=== PATIENT | male | born 1955 | race African-American/Black ===

== ENCOUNTER 2016-09-10 19:19 | Emergency (ER) | payer OTHER ==
[~2016-09-10] VITALS: Ht 182.9 cm; Wt 76.0 kg
[2016-09-11] MEDS ORDERED: METHYLPREDNISOLONE SOD SUCC 125 MG/2 ML VIAL IV STA (00:39)
[2016-09-11] MEDS ORDERED: IPRATROPIUM BROMIDE (0.02%) 0.5MG/2.5ML NEB HHN STA ×2 (00:39→04:44)
[2016-09-11] MEDS ORDERED: ALBUTEROL (0.083%) 2.5MG/3ML NEB HHN STA ×2 (00:39→04:44)
[2016-09-11] MEDS ORDERED: MAGNESIUM 2 G PREMIX 50 ML IV ONE (00:45)
[2016-09-11 01:03] LABS: BASOPHILS % 1.2 % (0.0-2.0); EOSINOPHILS % 6.4 % (0.0-5.0); HEMATOCRIT. 45.3 % (42.0-52.0); HEMOGLOBIN. 14.5 g/dL (14.0-18.0); LYMPHOCYTES % 41.4 % (20.0-50.0); MEAN CORPUSCULAR HEMOGLOBIN 28.4 pg (28.0-32.0); MEAN CORPUSCULAR HGB CONC 31.9 g/dL (31.0-37.0); MEAN CORPUSCULAR VOLUME 88.9 fL (80.0-94.0); MEAN PLATELET VOLUME 8.8 fl (7.4-10.4); MONOCYTES % 11.8 % (2.0-8.0); NEUTROPHILS % 39.2 % (40.0-76.0); PLATELET 269 x1000/uL (130-400); RED BLOOD CELL COUNT 5.09 mill/uL (4.7-6.1); RED CELL DISTRIBUTION WIDTH 14.8 % (11.6-14.6)
[2016-09-11 01:11] LABS: CHLORIDE 108 mEq/L (98-107); INDEX HEMOLYSI 1 (1-3); INDEX ICTERIC 1 (1-4); INDEX LIPEMIC 1 (1-3)
[2016-09-11 01:23] LABS: ANION GAP 11; CARBON DIOXIDE 28 mEq/L (21-32); NT PRO B-TYPE NATRIURETIC PEP 15 pg/mL (5-125); UREA NITROGEN BLOOD 15 mg/dL (7-21); eGFR > 60 mL/min (>60)
[2016-09-11 06:56] VITALS: BP 122/80
== END 2016-09-11 06:57 | disposition home or self-care (01) ==
LOC: ER 19:19
DX: J44.1 Chronic obstructive pulmonary disease with (acute) exacerbation (principal); J45.909 Unspecified asthma, uncomplicated
CPT/HCPCS: 36415; 71010; 80048; 83880; 85025; 94640; 96365; 96375; 99285; J2930; J3475; J7611; Z7610

== ENCOUNTER 2017-03-04 10:44 | Inpatient (IN) | payer OTHER ==
[~2017-03-04] VITALS: Ht 172.7 cm; Wt 75.7 kg
[~2017-03-04 10:44] MED LIST: ALBU05 IH; BUDE6.9H IH; DEXTL PO; METH4TAB17 PO
[2017-03-04] MEDS ORDERED: ALBUTEROL (0.083%) 2.5MG/3ML NEB HHN STA (10:50)
[2017-03-04] MEDS ORDERED: METHYLPREDNISOLONE SOD SUCC 125 MG/2 ML VIAL IV STA (10:50)
[2017-03-04] MEDS ORDERED: IPRATROPIUM BROMIDE (0.02%) 0.5MG/2.5ML NEB HHN STA (10:50)
[2017-03-04] MEDS ORDERED: MAGNESIUM 2 G PREMIX 50 ML IV ONE (11:00)
[2017-03-04] MEDS ORDERED: LEVOFLOXACIN 500MG PREMIX 100 ML IV ONE (11:15)
[2017-03-04 11:45] LABS: CHLORIDE 109 mEq/L (98-107)
[2017-03-04 11:48] LABS: BASOPHILS % 0.1 % (0.0-2.0); EOSINOPHILS % 7.2 % (0.0-5.0); HEMATOCRIT. 49.6 % (42.0-52.0); HEMOGLOBIN. 16.3 g/dL (14.0-18.0); LYMPHOCYTES % 46.7 % (20.0-50.0); MEAN CORPUSCULAR HEMOGLOBIN 28.7 pg (28.0-32.0); MEAN CORPUSCULAR VOLUME 87.3 fL (80.0-94.0); MEAN PLATELET VOLUME 9.2 fl (7.4-10.4); MONOCYTES % 10.1 % (2.0-8.0); NEUTROPHILS % 35.9 % (40.0-76.0); PLATELET 303 x1000/uL (130-400); RED BLOOD CELL COUNT 5.68 mill/uL (4.7-6.1)
[2017-03-04 11:50] LABS: INR 1.1; PARTIAL THROMBOPLASTIN TIME 29.9 sec (23.4-31.0)
[2017-03-04 11:52] LABS: CARBON DIOXIDE 27 mEq/L (21-32)
[2017-03-04 11:57] LABS: TROPONIN I < 0.02 ng/mL (0.00-0.04)
[2017-03-04] MEDS ORDERED: CLONIDINE 0.1MG TABLET PO PRN (12:00)
[2017-03-04] MEDS ORDERED: ONDANSETRON HCL 4MG/2ML VIAL IV PRN (12:00)
[2017-03-04] MEDS ORDERED: ACETAMINOPHEN 325MG TABLET PO PRN (12:00)
[2017-03-04] MEDS ORDERED: MAGNESIUM/ALUMINUM HYDROXIDE/SIMETHICONE 30ML UDC PO PRN (12:00)
[2017-03-04] MEDS ORDERED: DOCUSATE SODIUM 100MG CAPSULE PO PRN (12:00)
[2017-03-04 12:40] LABS: CHLORIDE 106 mEq/L (98-107)
[2017-03-04 12:45] LABS: CARBON DIOXIDE 27 mEq/L (21-32)
[2017-03-04 12:47] LABS: BG BASE EXCESS 0.6 mmol/L (-2.0-2.0); BG BILEVEL POS AIRWAY PRESSURE ST=15/5; BG DEOXYHEMOGLOBIN 0.4 % (0.0-5.0); BG FRACTION INSPIRED OXYGEN ON TREATMENT; BG HCO3 ACT 26.3 mmol/L (22.0-26.0); BG METHEMOGLOBIN 0.3 % (0.0-1.5); BG OXYGEN SATURATION 99.6 % (92.0-98.5); BG OXYHEMOGLOBIN 98.3 % (94.0-97.0); BG PCO2 45.4 mmHg (35.0-45.0); BG PO2 303.8 mmHg (75.0-100.0); BG PRESSURE SUPPORT 10; BG SAMPLE SITE RIGHT BRACHIAL; BG TOTAL HEMOGLOBIN 17.1 g/dL (12.0-18.0); BG VENT MODE MASK - BIPAP; BG VENT RATE 16 set
[2017-03-04] MEDS ORDERED: METHYLPREDNISOLONE SOD SUCC 125 MG/2 ML VIAL IV SCH (14:00)
[2017-03-04] MEDS ORDERED: IPRATROPIUM/ALBUTEROL 0.5-3(2.5)MG/3ML NEB HHN PRN (14:15)
[2017-03-04 16:31] VITALS: BP 139/88
[2017-03-04] MEDS: OMEPRAZOLE 20MG CAPSULE EXTENDED RELEASE PO SCH (17:29)
[2017-03-04] MEDS: ENOXAPARIN 40MG/0.4ML SYR SUBCUT SCH (17:29)
[2017-03-04 17:40] LABS: CREATINE KINASE MB FRACTION 2.3 ng/mL (0.5-3.6)
[2017-03-04 18:12] LABS: CLARITY URINE CLEAR (CLEAR); COLOR URINE YELLOW (YELLOW); GLUCOSE URINE NEGATIVE (NEGATIVE); KETONES URINE NEGATIVE (NEGATIVE); LEUKOCYTE ESTERASE URINE NEGATIVE (NEGATIVE); NITRITE URINE NEGATIVE (NEGATIVE); OCCULT BLOOD URINE NEGATIVE (NEGATIVE); PROTEIN URINE TRACE (NEGATIVE); SPECIFIC GRAVITY URINE 1.029 (1.005-1.030)
[2017-03-04 18:31] LABS: *AMPHETAMINES SCREEN URINE NEGATIVE (NEGATIVE); *BARBITURATES SCREEN URINE NEGATIVE (NEGATIVE); *BENZODIAZEPINES SCREEN URINE NEGATIVE (NEGATIVE); *COCAINE SCREEN URINE PRESUMTIVE POSITIVE (NEGATIVE); CANNABINOID URINE SCREEN NEGATIVE (NEGATIVE); METHADONE URINE SCREEN NEGATIVE (NEGATIVE); OPIATES URINE SCREEN PRESUMTIVE POSITIVE (NEGATIVE); PHENCYCLIDINE URINE SCREEN NEGATIVE (NEGATIVE)
[2017-03-04] MEDS ORDERED: CEFTRIAXONE 1 G PREMIX 50 ML IV SCH (20:00)
[2017-03-04 20:01] VITALS: BP 124/74
[2017-03-04] MEDS: METHYLPREDNISOLONE SOD SUCC 40 MG/ML VIAL IV SCH (20:13)
[2017-03-04] MEDS: BUDESONIDE 0.5MG/2ML NEB HHN SCH (20:15)
[2017-03-04] MEDS: IPRATROPIUM/ALBUTEROL 0.5-3(2.5)MG/3ML NEB INH PRN (20:15)
[2017-03-04 22:00] VITALS: BP 127/74
[2017-03-04] MEDS: GUAIFENESIN 200MG/10ML SUGAR FREE UDC PO PRN (22:51)
[2017-03-05] VITALS (13 sets, daily range): BP systolic 102–139; BP diastolic 52–88
[2017-03-05 01:35] LABS: CREATINE KINASE MB FRACTION 3.3 ng/mL (0.5-3.6)
[2017-03-05] MEDS: METHYLPREDNISOLONE SOD SUCC 40 MG/ML VIAL IV SCH ×3 (03:16→20:30)
[2017-03-05] MEDS: GUAIFENESIN 200MG/10ML SUGAR FREE UDC PO PRN (03:26)
[2017-03-05] MEDS: OMEPRAZOLE 20MG CAPSULE EXTENDED RELEASE PO SCH (06:34)
[2017-03-05 07:07] LABS: BASOPHILS % 0.4 % (0.0-2.0); HEMATOCRIT. 46.4 % (42.0-52.0); HEMOGLOBIN. 15.3 g/dL (14.0-18.0); LYMPHOCYTES % 15.9 % (20.0-50.0); MEAN CORPUSCULAR HEMOGLOBIN 28.5 pg (28.0-32.0); MEAN CORPUSCULAR VOLUME 86.7 fL (80.0-94.0); MEAN PLATELET VOLUME 9.3 fl (7.4-10.4); MONOCYTES % 2.7 % (2.0-8.0); PLATELET 304 x1000/uL (130-400); RED BLOOD CELL COUNT 5.34 mill/uL (4.7-6.1); RED CELL DISTRIBUTION WIDTH 13.6 % (11.6-14.6)
[2017-03-05] MEDS: AZITHROMYCIN 500 MG TABLET PO SCH (08:00)
[2017-03-05] MEDS: IPRATROPIUM/ALBUTEROL 0.5-3(2.5)MG/3ML NEB INH PRN ×2 (09:39→21:29)
[2017-03-05] MEDS: BUDESONIDE 0.5MG/2ML NEB HHN SCH ×2 (09:39→21:30)
[2017-03-05] MEDS: ENOXAPARIN 40MG/0.4ML SYR SUBCUT SCH (17:05)
[2017-03-05] MEDS: GUAIFENESIN 600MG ER TABLET PO SCH (20:30)
[2017-03-05] MEDS: CEFTRIAXONE 1 G PREMIX 50 ML IV SCH (21:39)
[2017-03-06] VITALS (12 sets, daily range): BP systolic 114–150; BP diastolic 63–86
[2017-03-06] MEDS: METHYLPREDNISOLONE SOD SUCC 40 MG/ML VIAL IV SCH ×2 (04:23→20:19)
[2017-03-06] MEDS: BUDESONIDE 0.5MG/2ML NEB HHN SCH ×2 (08:02→20:02)
[2017-03-06] MEDS: IPRATROPIUM/ALBUTEROL 0.5-3(2.5)MG/3ML NEB INH PRN (08:03)
[2017-03-06] MEDS: AZITHROMYCIN 500 MG TABLET PO SCH (08:40)
[2017-03-06] MEDS: GUAIFENESIN 600MG ER TABLET PO SCH ×2 (08:40→20:18)
[2017-03-06] MEDS: FAMOTIDINE 20MG TABLET PO SCH ×2 (08:40→16:59)
[2017-03-06] MEDS: ENOXAPARIN 40MG/0.4ML SYR SUBCUT SCH (17:00)
[2017-03-06] MEDS: CEFTRIAXONE 1 G PREMIX 50 ML IV SCH (20:18)
[2017-03-07] VITALS (8 sets, daily range): BP systolic 91–139; BP diastolic 55–90
[2017-03-07 07:01] LABS: BASOPHILS % 0.2 % (0.0-2.0); HEMATOCRIT. 47.5 % (42.0-52.0); HEMOGLOBIN. 15.6 g/dL (14.0-18.0); LYMPHOCYTES % 16.4 % (20.0-50.0); MEAN CORPUSCULAR HEMOGLOBIN 28.5 pg (28.0-32.0); MEAN CORPUSCULAR VOLUME 86.8 fL (80.0-94.0); MEAN PLATELET VOLUME 9.5 fl (7.4-10.4); MONOCYTES % 5.6 % (2.0-8.0); NEUTROPHILS % 77.8 % (40.0-76.0); PLATELET 286 x1000/uL (130-400); RED BLOOD CELL COUNT 5.47 mill/uL (4.7-6.1)
[2017-03-07 07:14] LABS: CARBON DIOXIDE 27 mEq/L (21-32); CHLORIDE 102 mEq/L (98-107)
[2017-03-07] MEDS: BUDESONIDE 0.5MG/2ML NEB HHN SCH (08:05)
[2017-03-07] MEDS: FAMOTIDINE 20MG TABLET PO SCH (08:22)
[2017-03-07] MEDS: AZITHROMYCIN 500 MG TABLET PO SCH (08:22)
[2017-03-07] MEDS: GUAIFENESIN 600MG ER TABLET PO SCH (08:22)
[2017-03-07] MEDS: METHYLPREDNISOLONE SOD SUCC 40 MG/ML VIAL IV SCH (08:24)
[2017-03-07] MEDS ORDERED: AZIT500T5 PO (11:51)
[2017-03-07] MEDS ORDERED: FAMO20TA8 PO (11:51)
[2017-03-07] MEDS ORDERED: PULM50 HHN (11:51)
[2017-03-07] MEDS ORDERED: GUAI600T44 PO (11:51)
[2017-03-07] MEDS ORDERED: DUONEB3 ML INH (11:51)
== END 2017-03-07 14:00 | disposition home or self-care (01) | DRG 140 ==
LOC: EDBEDREQSVC 11:34 → EDBEDREQTM 11:34 → EDBEDREQ 11:34 → ER 11:53 → 3WST 12:27 → ENRESERV 14:42
PROVIDERS: ADMIT Internal Medicine; ATTEND Internal Medicine
PROC: 5A09357 Assistance with Respiratory Ventilation, Less than 24 Consecutive Hours, Continuous Positive Airway Pressure (ICD-10-PCS; principal; 2017-03-04)
DX: J44.1 Chronic obstructive pulmonary disease with (acute) exacerbation (principal); J96.01 Acute respiratory failure with hypoxia; I10 Essential (primary) hypertension; F14.90 Cocaine use, unspecified, uncomplicated; F17.210 Nicotine dependence, cigarettes, uncomplicated; Z90.2 Acquired absence of lung [part of]; Z79.899 Other long term (current) drug therapy
CPT/HCPCS: 36415; 36600; 71010; 80048; 80053; 80061; 80305; 81001; 82375; 82550; 82553; 82805; 83605; 83690; 83735; 83880; 84443; 84484; 85025; 85610; 85730; 87040; 87070; 87086; 93005; 93970; 94640; 94660; 96365; 96367; 96375; 99291; J0696; J1650; J1956; J2920; J2930; J3475; J7050; J7611; J7620; J7626

== ENCOUNTER 2018-03-20 21:41 | Inpatient (IN) | payer OTHER ==
[~2018-03-20] VITALS: Ht 182.9 cm; Wt 75.7 kg
[~2018-03-20 21:41] MED LIST changes: -ALBU05 IH; +AZIT500T5 PO; -BUDE6.9H IH; -DEXTL PO; +DUONEB3 ML INH; +FAMO20TA8 PO; +GUAI600T44 PO; -METH4TAB17 PO; +PULM50 HHN
[2018-03-20] MEDS ORDERED: SODIUM CHLORIDE 0.9% 1,000 ML IV ONE (22:13)
[2018-03-20] MEDS ORDERED: ALBUTEROL (0.083%) 2.5MG/3ML NEB HHN STA (22:13)
[2018-03-20] MEDS ORDERED: METHYLPREDNISOLONE SOD SUCC 125 MG/2 ML VIAL IV STA (22:13)
[2018-03-20] MEDS ORDERED: IPRATROPIUM BROMIDE (0.02%) 0.5MG/2.5ML NEB HHN STA (22:13)
[2018-03-20 23:41] LABS: BASOPHILS % 1.3 % (0.0-2.0); HEMATOCRIT. 49.3 % (42.0-52.0); HEMOGLOBIN. 15.9 g/dL (14.0-18.0); LYMPHOCYTES % 47.8 % (20.0-50.0); MEAN CORPUSCULAR HEMOGLOBIN 29.2 pg (28.0-32.0); MEAN CORPUSCULAR VOLUME 90.8 fL (80.0-94.0); MEAN PLATELET VOLUME 8.9 fl (7.4-10.4); MONOCYTES % 10.3 % (2.0-8.0); NEUTROPHILS % 31.6 % (40.0-76.0); PLATELET 388 x1000/uL (130-400); RED BLOOD CELL COUNT 5.43 mill/uL (4.7-6.1); RED CELL DISTRIBUTION WIDTH 13.9 % (11.6-14.6)
[2018-03-20 23:46] LABS: CHLORIDE 108 mEq/L (98-107)
[2018-03-21 01:00] VITALS: BP 131/84
[2018-03-21 01:30] VITALS: BP 131/84
[2018-03-21] MEDS ORDERED: IBUP-2271 PO (01:52)
[2018-03-21 04:00] VITALS: BP 113/68
[2018-03-21] MEDS ORDERED: HYDROCODONE/ACETAMINOPHEN 10/325MG TABLET PO PRN (04:00)
[2018-03-21] MEDS ORDERED: MORPHINE SULFATE 4 MG/ML CPJ (NOT FOR IM USE) IV PRN (04:00)
[2018-03-21] MEDS ORDERED: DIPHENHYDRAMINE 50MG/ML VIAL IV PRN (04:00)
[2018-03-21] MEDS ORDERED: LORAZEPAM 2MG/ML CPJ IV PRN (04:00)
[2018-03-21] MEDS ORDERED: NA PHOS,M-B/NA PHOS,DI-BA ENEMA 118ML PR PRN (04:00)
[2018-03-21] MEDS ORDERED: IPRATROPIUM/ALBUTEROL 0.5-3(2.5)MG/3ML NEB INH PRN (04:00)
[2018-03-21] MEDS ORDERED: ONDANSETRON HCL 4MG/2ML INJ IV PRN (04:00)
[2018-03-21] MEDS ORDERED: DOCUSATE SODIUM 100MG CAPSULE PO PRN (04:00)
[2018-03-21] MEDS ORDERED: CLONIDINE 0.1MG TABLET PO PRN (04:00)
[2018-03-21] MEDS ORDERED: GUAIFENESIN 200MG/10ML SUGAR FREE UDC PO PRN (04:00)
[2018-03-21] MEDS ORDERED: ACETAMINOPHEN 325MG TABLET PO PRN (04:00)
[2018-03-21] MEDS ORDERED: MAGNESIUM/ALUMINUM HYDROXIDE/SIMETHICONE 30ML UDC PO PRN (04:00)
[2018-03-21] MEDS ORDERED: METHYLPREDNISOLONE SOD SUCC 125 MG/2 ML VIAL IV SCH (06:00)
[2018-03-21] MEDS ORDERED: LEVOFLOXACIN 500MG PREMIX 100 ML IV SCH (06:00)
[2018-03-21 07:54] LABS: CHLORIDE 106 mEq/L (98-107)
[2018-03-21 08:00] VITALS: BP 126/70
[2018-03-21] MEDS ORDERED: ASPIRIN 81MG EC TABLET PO SCH (09:00)
[2018-03-21] MEDS ORDERED: ENOXAPARIN 40MG/0.4ML SYR SUBCUT SCH (09:00)
[2018-03-21] MEDS ORDERED: BUDESONIDE 0.5MG/2ML NEB HHN SCH (11:30)
[2018-03-21 12:00] VITALS: BP 131/68
[2018-03-21] MEDS ORDERED: NICOTINE 14MG PATCH TD SCH (12:30)
[2018-03-21] MEDS: GUAIFENESIN 600MG ER TABLET PO SCH ×2 (12:36→20:11)
[2018-03-21] MEDS: IPRATROPIUM/ALBUTEROL 0.5-3(2.5)MG/3ML NEB HHN SCH ×2 (13:15→16:30)
[2018-03-21] MEDS ORDERED: METHYLPREDNISOLONE SOD SUCC 40 MG/ML VIAL IV SCH (14:00)
[2018-03-21 16:00] VITALS: BP 110/69
== END 2018-03-21 20:30 | disposition short-term general hospital (02) | DRG 816 ==
LOC: ER 22:23 → 7WST 23:56 → EDBEDREQ 23:58 → EDBEDREQTM 23:58 → ENRESERV 03-21 00:04
PROVIDERS: ADMIT Internal Medicine; ATTEND Internal Medicine
DX: T40.5X1A Poisoning by cocaine, accidental (unintentional), initial encounter (principal); J96.00 Acute respiratory failure, unspecified whether with hypoxia or hypercapnia; E46 Unspecified protein-calorie malnutrition; D72.1 Eosinophilia; J68.0 Bronchitis and pneumonitis due to chemicals, gases, fumes and vapors; F41.9 Anxiety disorder, unspecified; K59.00 Constipation, unspecified; F14.10 Cocaine abuse, uncomplicated; F17.210 Nicotine dependence, cigarettes, uncomplicated; Y92.89 Other specified places as the place of occurrence of the external cause; Z79.899 Other long term (current) drug therapy; Z90.2 Acquired absence of lung [part of]; Z68.22 Body mass index [BMI] 22.0-22.9, adult
CPT/HCPCS: 36415; 71045; 80048; 80053; 83880; 84484; 85025; 93005; 96361; 96374; 99291; J1650; J1956; J2920; J2930; J7030; J7050; J7611; J7620; J7626

== ENCOUNTER 2018-08-16 04:13 | Inpatient (IN) | payer OTHER ==
[~2018-08-16] VITALS: Ht 152.4 cm; Wt 77.1 kg
[~2018-08-16 04:13] MED LIST changes: -AZIT500T5 PO; -DUONEB3 ML INH; -FAMO20TA8 PO; +IBUP-2271 PO; -PULM50 HHN
[2018-08-16] MEDS ORDERED: IPRATROPIUM BROMIDE (0.02%) 0.5MG/2.5ML NEB HHN STA (04:29)
[2018-08-16] MEDS ORDERED: ONDANSETRON HCL 4MG/2ML INJ IV STA (04:29)
[2018-08-16] MEDS ORDERED: METHYLPREDNISOLONE SOD SUCC 125 MG/2 ML VIAL IV STA (04:29)
[2018-08-16] MEDS ORDERED: ALBUTEROL (0.083%) 2.5MG/3ML NEB HHN SCH (04:30)
[2018-08-16] MEDS ORDERED: MAGNESIUM 2 G PREMIX 50 ML IV ONE (04:30)
[2018-08-16 05:26] LABS: BASOPHILS % 0.8 % (0.0-2.0); HEMATOCRIT. 46.5 % (42.0-52.0); HEMOGLOBIN. 14.9 g/dL (14.0-18.0); LYMPHOCYTES % 31.4 % (20.0-50.0); MEAN CORPUSCULAR HEMOGLOBIN 29.2 pg (28.0-32.0); MEAN CORPUSCULAR VOLUME 90.8 fL (80.0-94.0); MEAN PLATELET VOLUME 9.2 fl (7.4-10.4); MONOCYTES % 10.7 % (2.0-8.0); NEUTROPHILS % 52.1 % (40.0-76.0); PLATELET 292 x1000/uL (130-400); RED BLOOD CELL COUNT 5.12 mill/uL (4.7-6.1); RED CELL DISTRIBUTION WIDTH 14.5 % (11.6-14.6)
[2018-08-16 05:29] LABS: CHLORIDE 110 mEq/L (98-107)
[2018-08-16 05:42] LABS: BG BASE EXCESS 2.2 mmol/L (-2.0-2.0); BG BILEVEL POS AIRWAY PRESSURE 15/5; BG DEOXYHEMOGLOBIN 1.9 % (0.0-5.0); BG FRACTION INSPIRED OXYGEN 40; BG HCO3 ACT 28.4 mmol/L (22.0-26.0); BG METHEMOGLOBIN 0.3 % (0.0-1.5); BG OXYGEN SATURATION 98.1 % (92.0-98.5); BG OXYHEMOGLOBIN 95.8 % (94.0-97.0); BG PCO2 50.2 mmHg (35.0-45.0); BG PH 7.371 (7.350-7.450); BG PO2 106.1 mmHg (75.0-100.0); BG SAMPLE SITE RIGHT RADIAL; BG TOTAL HEMOGLOBIN 15.2 g/dL (12.0-18.0); BG VENT MODE MASK - BIPAP; BG VENT RATE 16 set
[2018-08-16] MEDS ORDERED: ACETAMINOPHEN 325MG TABLET PO PRN (10:30)
[2018-08-16] MEDS ORDERED: ONDANSETRON HCL 4MG/2ML INJ IV PRN (10:30)
[2018-08-16] MEDS ORDERED: GUAIFENESIN-DM 200MG-20MG/10ML UDC PO PRN (10:30)
[2018-08-16] MEDS ORDERED: CLONIDINE 0.1MG TABLET PO PRN (10:30)
[2018-08-16] MEDS ORDERED: IPRATROPIUM/ALBUTEROL 0.5-3(2.5)MG/3ML NEB HHN PRN (10:30)
[2018-08-16] MEDS ORDERED: NICOTINE 14MG PATCH TD NR (12:00)
[2018-08-16] MEDS: METHYLPREDNISOLONE SOD SUCC 40 MG/ML VIAL IV SCH ×2 (12:06→21:07)
[2018-08-16] MEDS: IPRATROPIUM/ALBUTEROL 0.5-3(2.5)MG/3ML NEB HHN SCH ×2 (13:47→16:14)
[2018-08-16 20:00] VITALS: BP 128/78
[2018-08-16] MEDS: GUAIFENESIN 600MG ER TABLET PO SCH (21:07)
[2018-08-16 21:26] VITALS: BP 129/84
[2018-08-16 22:00] VITALS: BP 129/84
[2018-08-16 23:17] LABS: *BENZODIAZEPINES SCREEN URINE NEGATIVE (NEGATIVE); *COCAINE SCREEN URINE PRESUMTIVE POSITIVE (NEGATIVE); CANNABINOID URINE SCREEN NEGATIVE (NEGATIVE); METHADONE URINE SCREEN NEGATIVE (NEGATIVE); OPIATES URINE SCREEN NEGATIVE (NEGATIVE); PHENCYCLIDINE URINE SCREEN NEGATIVE (NEGATIVE)
[2018-08-16 23:19] LABS: *AMPHETAMINES SCREEN URINE NEGATIVE (NEGATIVE); *BARBITURATES SCREEN URINE NEGATIVE (NEGATIVE)
[2018-08-17] VITALS (12 sets, daily range): BP systolic 121–147; BP diastolic 67–91
[2018-08-17] MEDS: IPRATROPIUM/ALBUTEROL 0.5-3(2.5)MG/3ML NEB HHN SCH ×6 (00:22→20:57)
[2018-08-17] MEDS: METHYLPREDNISOLONE SOD SUCC 40 MG/ML VIAL IV SCH ×3 (04:20→21:25)
[2018-08-17 06:48] LABS: CHLORIDE 108 mEq/L (98-107)
[2018-08-17 06:51] LABS: BASOPHILS % 0.2 % (0.0-2.0); HEMATOCRIT. 42.6 % (42.0-52.0); HEMOGLOBIN. 13.7 g/dL (14.0-18.0); LYMPHOCYTES % 12.3 % (20.0-50.0); MEAN CORPUSCULAR HEMOGLOBIN 28.8 pg (28.0-32.0); MEAN CORPUSCULAR VOLUME 89.5 fL (80.0-94.0); MEAN PLATELET VOLUME 9.1 fl (7.4-10.4); MONOCYTES % 5.9 % (2.0-8.0); NEUTROPHILS % 81.6 % (40.0-76.0); PLATELET 277 x1000/uL (130-400); RED BLOOD CELL COUNT 4.76 mill/uL (4.7-6.1); RED CELL DISTRIBUTION WIDTH 13.9 % (11.6-14.6)
[2018-08-17] MEDS: GUAIFENESIN 600MG ER TABLET PO SCH ×2 (08:59→21:24)
[2018-08-17] MEDS: NICOTINE 14MG PATCH TD SCH (09:00)
[2018-08-17] MEDS: AZITHROMYCIN 500 MG TABLET PO SCH (11:28)
[2018-08-17] MEDS ORDERED: ENOXAPARIN 40MG/0.4ML SYR SUBCUT SCH (21:15)
[2018-08-18] VITALS (8 sets, daily range): BP systolic 124–143; BP diastolic 68–96
[2018-08-18] MEDS: IPRATROPIUM/ALBUTEROL 0.5-3(2.5)MG/3ML NEB HHN SCH ×4 (00:42→12:09)
[2018-08-18] MEDS: METHYLPREDNISOLONE SOD SUCC 40 MG/ML VIAL IV SCH ×2 (05:38→11:47)
[2018-08-18] MEDS: NICOTINE 14MG PATCH TD SCH (08:02)
[2018-08-18] MEDS: GUAIFENESIN 600MG ER TABLET PO SCH (08:02)
[2018-08-18] MEDS: AZITHROMYCIN 500 MG TABLET PO SCH (11:57)
== END 2018-08-18 13:50 | disposition home or self-care (01) | DRG 816 ==
LOC: ER 04:13 → EDBEDREQ 05:08 → EDBEDREQTM 05:08 → ENRESERV 17:44 → 3WST 20:22
PROVIDERS: ADMIT Internal Medicine; ATTEND Internal Medicine
PROC: 5A09357 Assistance with Respiratory Ventilation, Less than 24 Consecutive Hours, Continuous Positive Airway Pressure (ICD-10-PCS; principal; 2018-08-16)
PROC: 5A09357 Assistance with Respiratory Ventilation, Less than 24 Consecutive Hours, Continuous Positive Airway Pressure (ICD-10-PCS; 2018-08-17)
DX: T40.5X1A Poisoning by cocaine, accidental (unintentional), initial encounter (principal); J96.00 Acute respiratory failure, unspecified whether with hypoxia or hypercapnia; J44.1 Chronic obstructive pulmonary disease with (acute) exacerbation; J68.0 Bronchitis and pneumonitis due to chemicals, gases, fumes and vapors; F14.90 Cocaine use, unspecified, uncomplicated; E87.0 Hyperosmolality and hypernatremia; E87.2 Acidosis; J06.9 Acute upper respiratory infection, unspecified; E87.8 Other disorders of electrolyte and fluid balance, not elsewhere classified; F17.210 Nicotine dependence, cigarettes, uncomplicated; Y92.89 Other specified places as the place of occurrence of the external cause; Z71.51 Drug abuse counseling and surveillance of drug abuser; Z71.6 Tobacco abuse counseling
CPT/HCPCS: 36415; 36600; 71045; 80048; 80305; 82375; 82805; 83880; 84484; 93005; 94640; 94660; 96374; 99285; J1650; J2405; J2920; J2930; J3475; J7611; J7620

== ENCOUNTER 2018-10-18 17:00 | Inpatient (IN) | payer OTHER ==
[~2018-10-18] VITALS: Ht 182.9 cm; Wt 77.1 kg
[2018-10-18] MEDS ORDERED: METHYLPREDNISOLONE SOD SUCC 125 MG/2 ML VIAL IV STA (17:14)
[2018-10-18] MEDS ORDERED: LEVOFLOXACIN 750MG PREMIX 150 ML IV ONE (17:15)
[2018-10-18] MEDS ORDERED: IPRATROPIUM/ALBUTEROL 0.5-3(2.5)MG/3ML NEB HHN ONE (17:15)
[2018-10-18 17:58] LABS: BASOPHILS % 2.4 % (0.0-2.0); HEMATOCRIT. 47.8 % (42.0-52.0); HEMOGLOBIN. 15.7 g/dL (14.0-18.0); LYMPHOCYTES % 49.1 % (20.0-50.0); MEAN CORPUSCULAR HEMOGLOBIN 29.3 pg (28.0-32.0); MEAN CORPUSCULAR VOLUME 89.5 fL (80.0-94.0); MONOCYTES % 9.6 % (2.0-8.0); NEUTROPHILS % 28.9 % (40.0-76.0); PLATELET 259 x1000/uL (130-400); RED BLOOD CELL COUNT 5.34 mill/uL (4.7-6.1)
[2018-10-18 18:04] LABS: CHLORIDE 113 mEq/L (98-107)
[2018-10-18 18:05] LABS: PARTIAL THROMBOPLASTIN TIME 31.2 sec (23.4-31.0); PROTHROMBIN TIME 10.1 sec (9.6-11.0)
[2018-10-18 18:12] LABS: ETHANOL BLOOD < 10 mg/dL
[2018-10-18 18:28] LABS: BG CARBOXYHEMOGLOBIN 1.2 % (0.5-1.5); BG FRACTION INSPIRED OXYGEN 60; BG HCO3 ACT 23.3 mmol/L (22.0-26.0); BG METHEMOGLOBIN 0.4 % (0.0-1.5); BG OXYHEMOGLOBIN 97.4 % (94.0-97.0); BG PCO2 41.6 mmHg (35.0-45.0); BG PH 7.366 (7.350-7.450); BG PO2 147.3 mmHg (75.0-100.0); BG SAMPLE SITE RIGHT RADIAL; BG TOTAL HEMOGLOBIN 15.7 g/dL (12.0-18.0); BG VENT MODE MASK - AEROSOL
[2018-10-18 19:19] LABS: CLARITY URINE CLEAR (CLEAR); COLOR URINE YELLOW (YELLOW); KETONES URINE NEGATIVE (NEGATIVE); LEUKOCYTE ESTERASE URINE NEGATIVE (NEGATIVE); NITRITE URINE NEGATIVE (NEGATIVE); OCCULT BLOOD URINE NEGATIVE (NEGATIVE); PH URINE 7.5 (4.5-8.0); PROTEIN URINE NEGATIVE (NEGATIVE); SPECIFIC GRAVITY URINE 1.021 (1.005-1.030)
[2018-10-18 19:45] LABS: *AMPHETAMINES SCREEN URINE NEGATIVE (NEGATIVE); *BENZODIAZEPINES SCREEN URINE NEGATIVE (NEGATIVE); *COCAINE SCREEN URINE PRESUMTIVE POSITIVE (NEGATIVE); CANNABINOID URINE SCREEN NEGATIVE (NEGATIVE); METHADONE URINE SCREEN NEGATIVE (NEGATIVE); OPIATES URINE SCREEN PRESUMTIVE POSITIVE (NEGATIVE); PHENCYCLIDINE URINE SCREEN NEGATIVE (NEGATIVE)
[2018-10-18 19:46] LABS: *BARBITURATES SCREEN URINE NEGATIVE (NEGATIVE)
[2018-10-18 21:40] VITALS: BP 152/82
[2018-10-18 21:55] VITALS: BP 152/82
[2018-10-18] MEDS ORDERED: BUDE6.9H INH (22:51)
[2018-10-19] VITALS: BP 167/74
[2018-10-19] MEDS ORDERED: LEVOFLOXACIN 500MG PREMIX 100 ML IV SCH ×2 (00:30→18:00)
[2018-10-19] MEDS ORDERED: NON FORMULARY PATIENT HOME MED XX SCH (00:30)
[2018-10-19] MEDS ORDERED: IPRATROPIUM/ALBUTEROL 0.5-3(2.5)MG/3ML NEB HHN PRN (00:30)
[2018-10-19 04:00] VITALS: BP 144/82
[2018-10-19] MEDS: IPRATROPIUM/ALBUTEROL 0.5-3(2.5)MG/3ML NEB HHN SCH ×4 (04:00→17:00)
[2018-10-19] MEDS: METHYLPREDNISOLONE SOD SUCC 40 MG/ML VIAL IV SCH ×2 (05:50→14:14)
[2018-10-19] MEDS ORDERED: PROMETHAZINE/DEXTROMETHORPHAN 6.25-15MG/5ML BOTTLE 120ML PO PRN (06:00)
[2018-10-19 08:00] VITALS: BP 136/76
[2018-10-19] MEDS ORDERED: PNEUMOCOCCAL 23-VAL P-SAC VAC 0.5 ML IM ONE (08:00)
[2018-10-19] MEDS: BUDESONIDE 0.5MG/2ML NEB HHN SCH ×2 (08:56→17:00)
[2018-10-19] MEDS ORDERED: NICOTINE 14MG PATCH TD SCH (11:15)
[2018-10-19 11:51] VITALS: BP 152/81
[2018-10-19 15:53] VITALS: BP 164/81
[2018-10-19 16:53] VITALS: BP 164/81
== END 2018-10-19 18:35 | disposition home or self-care (01) | DRG 816 ==
LOC: ER 17:18 → 8WST 18:26 → EDBEDREQ 18:30 → EDBEDREQTM 18:30 → ENRESERV 20:53 → CANRESERV 20:53
PROVIDERS: ADMIT Internal Medicine; ATTEND Internal Medicine
DX: T40.5X1A Poisoning by cocaine, accidental (unintentional), initial encounter (principal); J96.00 Acute respiratory failure, unspecified whether with hypoxia or hypercapnia; J44.1 Chronic obstructive pulmonary disease with (acute) exacerbation; E87.8 Other disorders of electrolyte and fluid balance, not elsewhere classified; F14.10 Cocaine abuse, uncomplicated; F17.210 Nicotine dependence, cigarettes, uncomplicated; Z79.899 Other long term (current) drug therapy; Y92.9 Unspecified place or not applicable; J68.0 Bronchitis and pneumonitis due to chemicals, gases, fumes and vapors
CPT/HCPCS: 36415; 36600; 71045; 80305; 80320; 82375; 82805; 83605; 83880; 84484; 90732; 93005; 96365; 96375; 99285; J1956; J2920; J2930; J7620; J7626; G0480

== ENCOUNTER 2019-01-30 20:58 | Emergency (ER) | payer OTHER ==
[~2019-01-30] VITALS: Ht 188 cm; Wt 91.0 kg
[~2019-01-30 20:58] MED LIST changes: +ALBU2.5V13 NEB; +BUDE6.9H INH
[2019-01-30] MEDS ORDERED: METHYLPREDNISOLONE SOD SUCC 125 MG/2 ML VIAL IV STA (21:18)
[2019-01-30] MEDS ORDERED: ALBUTEROL (0.083%) 2.5MG/3ML NEB HHN STA (21:18)
[2019-01-30] MEDS ORDERED: IPRATROPIUM BROMIDE (0.02%) 0.5MG/2.5ML NEB HHN STA (21:18)
[2019-01-30] MEDS ORDERED: MAGNESIUM 2 G PREMIX 50 ML IV ONE (21:30)
[2019-01-30 23:28] VITALS: BP 134/74
== END 2019-01-30 23:30 | disposition home or self-care (01) ==
LOC: ER 20:58
DX: J44.1 Chronic obstructive pulmonary disease with (acute) exacerbation (principal); I10 Essential (primary) hypertension; Z98.890 Other specified postprocedural states; Z79.899 Other long term (current) drug therapy
CPT/HCPCS: 94644; 96365; 96375; 99285; J2930; J3475; J7611

== ENCOUNTER 2019-02-26 11:27 | Inpatient (IN) | payer OTHER ==
[~2019-02-26] VITALS: Ht 182.9 cm; Wt 74.9 kg
[2019-02-26] MEDS ORDERED: METHYLPREDNISOLONE SOD SUCC 125 MG/2 ML VIAL IV STA (12:06)
[2019-02-26] MEDS ORDERED: ALBUTEROL (0.083%) 2.5MG/3ML NEB HHN STA (12:06)
[2019-02-26] MEDS ORDERED: IPRATROPIUM BROMIDE (0.02%) 0.5MG/2.5ML NEB HHN STA (12:06)
[2019-02-26] MEDS ORDERED: ASPIRIN 81MG TABLET PO ONE (12:15)
[2019-02-26 13:02] LABS: BASOPHILS % 0.6 % (0.0-2.0); HEMOGLOBIN. 15.1 g/dL (14.0-18.0); LYMPHOCYTES % 31.4 % (20.0-50.0); MEAN CORPUSCULAR HEMOGLOBIN 29.3 pg (28.0-32.0); MEAN CORPUSCULAR VOLUME 89.4 fL (80.0-94.0); MEAN PLATELET VOLUME 8.9 fl (7.4-10.4); MONOCYTES % 8.9 % (2.0-8.0); NEUTROPHILS % 50.1 % (40.0-76.0); PLATELET 289 x1000/uL (130-400); RED BLOOD CELL COUNT 5.14 mill/uL (4.7-6.1); RED CELL DISTRIBUTION WIDTH 13.8 % (11.6-14.6)
[2019-02-26 13:08] LABS: CHLORIDE 109 mEq/L (98-107)
[2019-02-26 13:10] LABS: PROTHROMBIN TIME 10.4 sec (9.6-11.0)
[2019-02-26] MEDS ORDERED: ONDANSETRON HCL 4MG/2ML INJ IV PRN (16:45)
[2019-02-26] MEDS ORDERED: IPRATROPIUM/ALBUTEROL 0.5-3(2.5)MG/3ML NEB HHN PRN (16:45)
[2019-02-26] MEDS ORDERED: ACETAMINOPHEN 325MG TABLET PO PRN (16:45)
[2019-02-26 22:50] VITALS: BP 143/83
[2019-02-26] MEDS: METHYLPREDNISOLONE SOD SUCC 40 MG/ML VIAL IV SCH (23:41)
[2019-02-26] MEDS: GUAIFENESIN-DM 200MG-20MG/10ML UDC PO PRN (23:41)
[2019-02-27] VITALS (7 sets, daily range): BP systolic 121–168; BP diastolic 72–101
[2019-02-27] MEDS: IPRATROPIUM/ALBUTEROL 0.5-3(2.5)MG/3ML NEB HHN SCH ×6 (01:00→21:09)
[2019-02-27] MEDS: GUAIFENESIN-DM 200MG-20MG/10ML UDC PO PRN ×2 (03:51→16:44)
[2019-02-27] MEDS: METHYLPREDNISOLONE SOD SUCC 40 MG/ML VIAL IV SCH ×2 (06:22→14:53)
[2019-02-27 07:14] LABS: BASOPHILS % 0.4 % (0.0-2.0); EOSINOPHILS % 0.1 % (0.0-5.0); HEMATOCRIT. 44.1 % (42.0-52.0); HEMOGLOBIN. 14.4 g/dL (14.0-18.0); LYMPHOCYTES % 16.2 % (20.0-50.0); MEAN CORPUSCULAR HEMOGLOBIN 29.4 pg (28.0-32.0); MEAN CORPUSCULAR VOLUME 89.8 fL (80.0-94.0); MEAN PLATELET VOLUME 9.1 fl (7.4-10.4); MONOCYTES % 1.6 % (2.0-8.0); NEUTROPHILS % 81.7 % (40.0-76.0); PLATELET 318 x1000/uL (130-400); RED BLOOD CELL COUNT 4.91 mill/uL (4.7-6.1); RED CELL DISTRIBUTION WIDTH 13.9 % (11.6-14.6)
[2019-02-27 07:20] LABS: CHLORIDE 107 mEq/L (98-107)
[2019-02-27] MEDS ORDERED: IPRATROPIUM/ALBUTEROL 0.5-3(2.5)MG/3ML NEB HHN SCH (16:00)
[2019-02-27 21:31] LABS: CLARITY URINE CLEAR (CLEAR); COLOR URINE YELLOW (YELLOW); KETONES URINE NEGATIVE (NEGATIVE); LEUKOCYTE ESTERASE URINE NEGATIVE (NEGATIVE); NITRITE URINE NEGATIVE (NEGATIVE); OCCULT BLOOD URINE NEGATIVE (NEGATIVE); PROTEIN URINE NEGATIVE (NEGATIVE); SPECIFIC GRAVITY URINE 1.027 (1.005-1.030); UROBILINOGEN URINE 0.2 E.U./dL (0.2-1.0)
[2019-02-27 22:01] LABS: *AMPHETAMINES SCREEN URINE NEGATIVE (NEGATIVE); *BARBITURATES SCREEN URINE NEGATIVE (NEGATIVE); *BENZODIAZEPINES SCREEN URINE NEGATIVE (NEGATIVE); *COCAINE SCREEN URINE PRESUMTIVE POSITIVE (NEGATIVE)
[2019-02-27 22:02] LABS: CANNABINOID URINE SCREEN NEGATIVE (NEGATIVE); METHADONE URINE SCREEN NEGATIVE (NEGATIVE); OPIATES URINE SCREEN NEGATIVE (NEGATIVE); PHENCYCLIDINE URINE SCREEN NEGATIVE (NEGATIVE)
[2019-02-28] VITALS: BP 140/80
[2019-02-28] MEDS: METHYLPREDNISOLONE SOD SUCC 40 MG/ML VIAL IV SCH ×3 (00:16→14:50)
[2019-02-28] MEDS: IPRATROPIUM/ALBUTEROL 0.5-3(2.5)MG/3ML NEB HHN SCH ×5 (00:32→15:56)
[2019-02-28 04:00] VITALS: BP 139/76
[2019-02-28 07:55] VITALS: BP 138/83
[2019-02-28 11:55] VITALS: BP 127/89
[2019-02-28] MEDS ORDERED: BENZONATATE 100MG CAPSULE PO PRN (15:45)
[2019-02-28 16:00] VITALS: BP 150/88
[2019-02-28] MEDS ORDERED: BUDESONIDE 0.5MG/2ML NEB HHN SCH (16:00)
[2019-02-28 18:02] VITALS: BP 150/88
== END 2019-02-28 18:30 | disposition home or self-care (01) | DRG 816 ==
LOC: ER 11:27 → 5WST 13:54 → EDBEDREQTM 13:59 → EDBEDREQ 13:59 → ENRESERV 20:31
PROVIDERS: ADMIT Internal Medicine; ATTEND Internal Medicine
DX: T40.5X1A Poisoning by cocaine, accidental (unintentional), initial encounter (principal); J96.00 Acute respiratory failure, unspecified whether with hypoxia or hypercapnia; J68.0 Bronchitis and pneumonitis due to chemicals, gases, fumes and vapors; J44.1 Chronic obstructive pulmonary disease with (acute) exacerbation; E87.8 Other disorders of electrolyte and fluid balance, not elsewhere classified; F17.210 Nicotine dependence, cigarettes, uncomplicated; F14.90 Cocaine use, unspecified, uncomplicated; Z71.6 Tobacco abuse counseling; Y92.89 Other specified places as the place of occurrence of the external cause
CPT/HCPCS: 36415; 71045; 80048; 80305; 81003; 83036; 83880; 84484; 93005; 94640; 99285; J2405; J2920; J2930; J7611; J7620; J7626

== ENCOUNTER 2019-04-15 02:32 | Emergency (ER) | payer OTHER ==
[~2019-04-15] VITALS: Ht 180.3 cm; Wt 106.0 kg
[2019-04-15] MEDS ORDERED: METHYLPREDNISOLONE SOD SUCC 125 MG/2 ML VIAL IV STA (03:27)
[2019-04-15] MEDS ORDERED: IPRATROPIUM BROMIDE (0.02%) 0.5MG/2.5ML NEB HHN STA (03:27)
[2019-04-15] MEDS ORDERED: MAGNESIUM 2 G PREMIX 50 ML IV ONE (03:30)
[2019-04-15] MEDS: ALBUTEROL (0.083%) 2.5MG/3ML NEB HHN SCH ×3 (03:41→05:05)
[2019-04-15 03:44] LABS: CHLORIDE 107 mEq/L (98-107)
[2019-04-15 03:45] LABS: BASOPHILS % 1.1 % (0.0-2.0); EOSINOPHILS % 3.8 % (0.0-5.0); HEMATOCRIT. 49.5 % (42.0-52.0); HEMOGLOBIN. 15.8 g/dL (14.0-18.0); LYMPHOCYTES % 22.4 % (20.0-50.0); MEAN CORPUSCULAR HEMOGLOBIN 29.3 pg (28.0-32.0); MEAN CORPUSCULAR VOLUME 91.4 fL (80.0-94.0); MEAN PLATELET VOLUME 9.1 fl (7.4-10.4); MONOCYTES % 7.1 % (2.0-8.0); NEUTROPHILS % 65.6 % (40.0-76.0); PLATELET 314 x1000/uL (130-400); RED BLOOD CELL COUNT 5.41 mill/uL (4.7-6.1); RED CELL DISTRIBUTION WIDTH 14.6 % (11.6-14.6)
[2019-04-15 10:09] VITALS: BP 124/78
== END 2019-04-15 10:21 ==
LOC: ER 02:32
DX: R06.02 Shortness of breath (principal); R06.2 Wheezing; F17.200 Nicotine dependence, unspecified, uncomplicated; F14.10 Cocaine abuse, uncomplicated; J44.9 Chronic obstructive pulmonary disease, unspecified; Z79.899 Other long term (current) drug therapy
CPT/HCPCS: 36415; 71045; 80053; 83880; 84484; 85025; 93005; 94640; 96374; 99285; J2930; J3475; J7611; Z7610

== ENCOUNTER 2019-08-17 09:43 | Emergency (ER) | payer OTHER ==
[~2019-08-17] VITALS: Ht 188 cm; Wt 86.0 kg
[~2019-08-17 09:43] MED LIST changes: -IBUP-2271 PO; +IBUP-2741 PO
[2019-08-17] MEDS ORDERED: METHYLPREDNISOLONE SOD SUCC 125 MG/2 ML VIAL IV STA (10:33)
[2019-08-17] MEDS ORDERED: ALBUTEROL (0.083%) 2.5MG/3ML NEB HHN STA (10:33)
[2019-08-17] MEDS ORDERED: IPRATROPIUM BROMIDE (0.02%) 0.5MG/2.5ML NEB HHN STA (10:33)
[2019-08-17] MEDS ORDERED: MAGNESIUM 2 G PREMIX 50 ML IV STA (10:33)
[2019-08-17] MEDS ORDERED: FUROSEMIDE 20MG/2ML VIAL IVP ONE (10:45)
[2019-08-17 11:18] LABS: BASOPHILS % 0.2 % (0.0-2.0); EOSINOPHILS % 13.7 % (0.0-5.0); HEMOGLOBIN. 15.9 g/dL (14.0-18.0); LYMPHOCYTES % 39.1 % (20.0-50.0); MEAN CORPUSCULAR HEMOGLOBIN 29.3 pg (28.0-32.0); MEAN CORPUSCULAR VOLUME 88.6 fL (80.0-94.0); MEAN PLATELET VOLUME 9.3 fl (7.4-10.4); MONOCYTES % 8.8 % (2.0-8.0); NEUTROPHILS % 38.2 % (40.0-76.0); PLATELET 247 x1000/uL (130-400); RED BLOOD CELL COUNT 5.42 mill/uL (4.7-6.1); RED CELL DISTRIBUTION WIDTH 14.5 % (11.6-14.6)
[2019-08-17 11:23] LABS: CHLORIDE 110 mEq/L (98-107)
[2019-08-17 19:52] VITALS: BP 118/73
== END 2019-08-17 20:59 | disposition short-term general hospital (02) ==
LOC: ER 09:43 → CANBEDREQ 08-18 06:28
DX: J44.1 Chronic obstructive pulmonary disease with (acute) exacerbation (principal); I11.0 Hypertensive heart disease with heart failure; I50.9 Heart failure, unspecified; J45.909 Unspecified asthma, uncomplicated; F14.10 Cocaine abuse, uncomplicated; Z79.899 Other long term (current) drug therapy
CPT/HCPCS: 36415; 71045; 80053; 83880; 84484; 85025; 93005; 94644; 96365; 96375; 99291; J1940; J2930; J3475; J7610; Z7610

== ENCOUNTER 2019-09-23 18:36 | Emergency (ER) | payer OTHER ==
[~2019-09-23] VITALS: Ht 182.9 cm; Wt 79.8 kg
[2019-09-23 20:32] VITALS: BP 143/81
== END 2019-09-23 20:34 | disposition home or self-care (01) ==
LOC: ER 18:36
DX: J03.90 Acute tonsillitis, unspecified (principal); J45.909 Unspecified asthma, uncomplicated; I50.9 Heart failure, unspecified; Z79.899 Other long term (current) drug therapy
CPT/HCPCS: 99283

== ENCOUNTER 2019-10-14 16:14 | Emergency (ER) | payer OTHER ==
[~2019-10-14] VITALS: Ht 180.3 cm; Wt 91.0 kg
[2019-10-14] MEDS ORDERED: METHYLPREDNISOLONE SOD SUCC 125 MG/2 ML VIAL IV STA (17:20)
[2019-10-14] MEDS ORDERED: IPRATROPIUM BROMIDE (0.02%) 0.5MG/2.5ML NEB HHN STA (17:20)
[2019-10-14] MEDS ORDERED: ALBUTEROL (0.083%) 2.5MG/3ML NEB HHN STA ×2 (17:20→19:41)
[2019-10-14 17:23] LABS: EOSINOPHILS % 7.8 % (0.0-5.0); HEMATOCRIT. 49.3 % (42.0-52.0); HEMOGLOBIN. 16.2 g/dL (14.0-18.0); LYMPHOCYTES % 42.7 % (20.0-50.0); MEAN CORPUSCULAR HEMOGLOBIN 29.2 pg (28.0-32.0); MEAN CORPUSCULAR VOLUME 88.7 fL (80.0-94.0); MEAN PLATELET VOLUME 9.4 fl (7.4-10.4); MONOCYTES % 9.5 % (2.0-8.0); PLATELET 343 x1000/uL (130-400); RED BLOOD CELL COUNT 5.56 mill/uL (4.7-6.1); RED CELL DISTRIBUTION WIDTH 15.8 % (11.6-14.6)
[2019-10-14 18:36] LABS: CHLORIDE 109 mEq/L (98-107)
[2019-10-14 22:30] VITALS: BP 137/82
== END 2019-10-14 23:16 | disposition short-term general hospital (02) ==
LOC: ER 16:14 → EDBEDREQ 20:20 → ER 23:16 → CANBEDREQ 23:52
DX: J44.1 Chronic obstructive pulmonary disease with (acute) exacerbation (principal); F17.290 Nicotine dependence, other tobacco product, uncomplicated; I10 Essential (primary) hypertension; Z79.899 Other long term (current) drug therapy
CPT/HCPCS: 36415; 71045; 80053; 83880; 84484; 85025; 87804; 93005; 94640; 94644; 96374; 99285; J2930; Z7610

== ENCOUNTER 2019-11-24 16:16 | Emergency (ER) | payer OTHER ==
[~2019-11-24] VITALS: Ht 182.9 cm; Wt 77.0 kg
[2019-11-24] MEDS ORDERED: IPRATROPIUM BROMIDE (0.02%) 0.5MG/2.5ML NEB HHN STA (16:55)
[2019-11-24] MEDS ORDERED: PREDNISONE 20MG TABLET PO STA (16:55)
[2019-11-24] MEDS: MAGNESIUM 2 G PREMIX 50 ML IV ONE ×2 (17:00→18:00)
[2019-11-24] MEDS: ALBUTEROL (0.083%) 2.5MG/3ML NEB HHN SCH ×2 (17:07→17:30)
[2019-11-24 17:31] LABS: BASOPHILS % 0.3 % (0.0-2.0); EOSINOPHILS % 7.2 % (0.0-5.0); HEMATOCRIT. 49.6 % (42.0-52.0); HEMOGLOBIN. 16.5 g/dL (14.0-18.0); LYMPHOCYTES % 39.7 % (20.0-50.0); MEAN CORPUSCULAR HEMOGLOBIN 29.9 pg (28.0-32.0); MEAN CORPUSCULAR VOLUME 89.7 fL (80.0-94.0); MEAN PLATELET VOLUME 8.9 fl (7.4-10.4); MONOCYTES % 11.2 % (2.0-8.0); NEUTROPHILS % 41.6 % (40.0-76.0); PLATELET 320 x1000/uL (130-400); RED BLOOD CELL COUNT 5.53 mill/uL (4.7-6.1); RED CELL DISTRIBUTION WIDTH 14.6 % (11.6-14.6)
[2019-11-24 17:37] LABS: CHLORIDE 109 mEq/L (98-107)
[2019-11-24 20:00] VITALS: BP 150/84
[2019-12-20] MEDS ORDERED: PRED-276 MT (17:05)
[2019-12-22] MEDS ORDERED: IPRA3AMP9 NEB (08:33)
[2019-12-22] MEDS ORDERED: MED4 MT (08:33)
== END 2019-11-24 23:48 | disposition home or self-care (01) ==
LOC: ER 16:16
DX: J44.1 Chronic obstructive pulmonary disease with (acute) exacerbation (principal); I10 Essential (primary) hypertension; F17.210 Nicotine dependence, cigarettes, uncomplicated
CPT/HCPCS: 36415; 71045; 80053; 83880; 84484; 85025; 93005; 94644; 96365; 99285; J3475; J7512; Z7610

== ENCOUNTER 2019-12-07 16:44 | Emergency (ER) | payer OTHER ==
[~2019-12-07] VITALS: Ht 182.9 cm; Wt 76.0 kg
[2019-12-07] MEDS ORDERED: PREDNISONE 20MG TABLET PO STA (17:07)
[2019-12-07] MEDS ORDERED: ALBUTEROL (0.083%) 2.5MG/3ML NEB HHN STA (17:07)
[2019-12-07 18:12] LABS: CHLORIDE 109 mEq/L (98-107)
[2019-12-07 19:13] VITALS: BP 122/75
[2019-12-20] MEDS ORDERED: PRED-276 MT (17:05)
[2019-12-22] MEDS ORDERED: MED4 MT (08:33)
[2019-12-22] MEDS ORDERED: IPRA3AMP9 NEB (08:33)
== END 2019-12-07 19:14 | disposition home or self-care (01) ==
LOC: ER 16:44
DX: J44.1 Chronic obstructive pulmonary disease with (acute) exacerbation (principal); R06.03 Acute respiratory distress; I10 Essential (primary) hypertension; Z79.899 Other long term (current) drug therapy
CPT/HCPCS: 36415; 71045; 80053; 93005; 94640; 99285; J7512

== ENCOUNTER 2020-03-09 22:45 | Emergency (ER) | payer MEDICARE, OTHER ==
[~2020-03-09] VITALS: Ht 182.9 cm; Wt 82.0 kg
[~2020-03-09 22:45] MED LIST changes: +IPRA3AMP9 NEB; +MED4 MT
[2020-03-09] MEDS ORDERED: METHYLPREDNISOLONE SOD SUCC 125 MG/2 ML VIAL IV STA (23:04)
[2020-03-09] MEDS ORDERED: IPRATROPIUM BROMIDE (0.02%) 0.5MG/2.5ML NEB HHN STA (23:04)
[2020-03-09] MEDS ORDERED: MAGNESIUM 2 G PREMIX 50 ML IV ONE (23:15)
[2020-03-09 23:49] LABS: BASOPHILS % 1.2 % (0.0-2.0); EOSINOPHILS % 1.5 % (0.0-5.0); HEMATOCRIT. 46.5 % (42.0-52.0); LYMPHOCYTES % 35.2 % (20.0-50.0); MEAN CORPUSCULAR HEMOGLOBIN 29.2 pg (28.0-32.0); MEAN CORPUSCULAR VOLUME 90.7 fL (80.0-94.0); MEAN PLATELET VOLUME 9.2 fl (7.4-10.4); MONOCYTES % 11.3 % (2.0-8.0); NEUTROPHILS % 50.8 % (40.0-76.0); PLATELET 341 x1000/uL (130-400); RED BLOOD CELL COUNT 5.13 mill/uL (4.7-6.1); RED CELL DISTRIBUTION WIDTH 14.4 % (11.6-14.6)
[2020-03-09] MEDS: ALBUTEROL (0.083%) 2.5MG/3ML NEB HHN SCH (23:54)
[2020-03-09 23:55] LABS: CHLORIDE 112 mEq/L (98-107)
[2020-03-10] MEDS: ALBUTEROL (0.083%) 2.5MG/3ML NEB HHN SCH ×2 (00:34→01:14)
[2020-03-10] MEDS ORDERED: ACETAMINOPHEN 325MG TABLET PO PRN (08:45)
[2020-03-10] MEDS ORDERED: IPRATROPIUM/ALBUTEROL 0.5-3(2.5)MG/3ML NEB HHN PRN (08:45)
[2020-03-10] MEDS ORDERED: BENZONATATE 100MG CAPSULE PO PRN (08:45)
[2020-03-10] MEDS ORDERED: ONDANSETRON HCL 4MG/2ML INJ IV PRN (08:45)
[2020-03-10] MEDS ORDERED: ENOXAPARIN 40MG/0.4ML SYR SUBCUT SCH (09:00)
[2020-03-10] MEDS ORDERED: AMLODIPINE 10MG TABLET PO SCH (09:00)
[2020-03-10] MEDS ORDERED: METHYLPREDNISOLONE SOD SUCC 40 MG/ML VIAL IV SCH (09:00)
[2020-03-10 10:07] VITALS: BP 142/84
[2020-03-10] MEDS ORDERED: IPRATROPIUM/ALBUTEROL 0.5-3(2.5)MG/3ML NEB HHN SCH (12:00)
== END 2020-03-10 10:17 | disposition short-term general hospital (02) ==
LOC: ER 22:45 → CANRESERV 03-10 07:30 → ENRESERV 03-10 07:30 → ER 03-10 10:17 → CANRESERV 03-10 10:44 → ENRESERV 03-10 10:44 → CANBEDREQ 03-10 17:09
DX: J44.1 Chronic obstructive pulmonary disease with (acute) exacerbation (principal); I10 Essential (primary) hypertension; F14.10 Cocaine abuse, uncomplicated; F17.210 Nicotine dependence, cigarettes, uncomplicated; Z75.1 Person awaiting admission to adequate facility elsewhere
CPT/HCPCS: 36415; 71045; 80053; 83605; 83880; 84484; 85025; 87040; 94640; 96365; 96366; 96375; 99291; J2930; J3475

== ENCOUNTER 2020-09-03 09:57 | Emergency (ER) | payer BC, OTHER ==
[~2020-09-03] VITALS: Ht 177.8 cm; Wt 79.0 kg
[2020-09-03] MEDS ORDERED: METHYLPREDNISOLONE SOD SUCC 125 MG/2 ML VIAL IV ONE (10:15)
[2020-09-03] MEDS ORDERED: IPRATROPIUM BROMIDE (0.02%) 0.5MG/2.5ML NEB HHN STA (10:15)
[2020-09-03] MEDS ORDERED: ALBUTEROL 6.7GM HFA INHALER ORI ONE (10:15)
[2020-09-03] MEDS: ALBUTEROL (0.083%) 2.5MG/3ML NEB HHN SCH ×3 (10:31→12:27)
[2020-09-03 11:36] LABS: BASOPHILS % 1.3 % (0.0-2.0); EOSINOPHILS % 5.1 % (0.0-5.0); HEMATOCRIT. 49.7 % (42.0-52.0); HEMOGLOBIN. 15.9 g/dL (14.0-18.0); LYMPHOCYTES % 30.2 % (20.0-50.0); MEAN CORPUSCULAR HEMOGLOBIN 28.7 pg (28.0-32.0); MEAN CORPUSCULAR VOLUME 89.9 fL (80.0-94.0); MONOCYTES % 9.5 % (2.0-8.0); NEUTROPHILS % 53.9 % (40.0-76.0); PLATELET 287 x1000/uL (130-400); RED BLOOD CELL COUNT 5.53 mill/uL (4.7-6.1); RED CELL DISTRIBUTION WIDTH 14.3 % (11.6-14.6)
[2020-09-03 11:41] LABS: CHLORIDE 106 mEq/L (98-107)
[2020-09-03 11:44] LABS: PROTHROMBIN TIME 10.9 sec (9.6-11.0)
[2020-09-03 11:46] LABS: C REACTIVE PROTEIN QUANT 5.8 mg/L (0.0-3.0)
[2020-09-03 11:49] LABS: CREATINE KINASE 299 IU/L (39-308)
[2020-09-03] MEDS ORDERED: P20 MT (15:49)
[2020-09-03] MEDS ORDERED: ALBU05 NEB (15:49)
[2020-09-03 17:00] VITALS: BP 154/86
[2020-09-03] MEDS ORDERED: P50 MT (18:27)
[2020-09-03] MEDS ORDERED: ALBU05 IH (18:27)
== END 2020-09-03 17:25 | disposition home or self-care (01) ==
LOC: ER 09:57 → CANBEDREQ 17:06 → ER 17:25
DX: J44.1 Chronic obstructive pulmonary disease with (acute) exacerbation (principal); I10 Essential (primary) hypertension; Z20.822 Contact with and (suspected) exposure to COVID-19; F17.200 Nicotine dependence, unspecified, uncomplicated; Z79.51 Long term (current) use of inhaled steroids; Z79.899 Other long term (current) drug therapy; Z98.890 Other specified postprocedural states
CPT/HCPCS: 36415; 71045; 80053; 82550; 82728; 83605; 83615; 83880; 84145; 84484; 85025; 85384; 85610; 86140; 87040; 93005; 94640; 96374; 99285; C9803; J2930; U0003

== ENCOUNTER 2024-05-12 13:21 | Inpatient (IN) | payer MEDICARE, MEDICAID ==
[~2024-05-12] VITALS: Ht 182.9 cm; Wt 75.7 kg
[~2024-05-12 13:21] MED LIST changes: +ALBU18HF2 IH; -ALBU2.5V13 NEB; -MED4 MT; +P20 MT
[2024-05-12] MEDS: METHYLPREDNISOLONE SOD SUCC 125MG/2ML (ACT-O-VIAL) IV ONE (14:24)
[2024-05-12 14:33] VITALS: PULSE 91; RESP 22; O2SAT 95
[2024-05-12] MEDS: IPRATROPIUM/ALBUTEROL 0.5-3(2.5)MG/3ML NEB HHN ONE (14:33)
[2024-05-12 14:36] LABS: CHLORIDE 107 mEq/L (98-107); POTASSIUM 4.2 mEq/L (3.5-5.1); SODIUM 142 mEq/L (136-145)
[2024-05-12 14:37] LABS: BASOPHILS % 0.8 % (0.0-2.0); CALCIUM 9.7 mg/dL (8.7-10.4); CARBON DIOXIDE 28 mEq/L (21-32); EOSINOPHILS % 0.9 % (0.0-5.0); HEMATOCRIT. 47.4 % (42.0-52.0); HEMOGLOBIN. 15.8 g/dL (14.0-18.0); MEAN CORPUSCULAR HGB CONC 33.3 g/dL (31.0-37.0); MEAN PLATELET VOLUME 9.1 fl (7.4-10.4); MONOCYTES % 6.9 % (2.0-8.0); NEUTROPHILS % 71.4 % (40.0-76.0); PLATELET 336 x1000/uL (130-400); RED BLOOD CELL COUNT 5.26 mill/uL (4.7-6.1); RED CELL DISTRIBUTION WIDTH 14.2 % (11.6-14.6); WHITE BLOOD COUNT 8.3 x1000/uL (4.5-11.0)
[2024-05-12 14:42] LABS: CREATININE 1.3 mg/dL (0.6-1.3); GLUCOSE 120 mg/dL (70-105); UREA NITROGEN BLOOD 14 mg/dL (9-23)
[2024-05-12 14:44] LABS: TROPONIN I HIGH SENSITIVITY 6 ng/L (3.0-53)
[2024-05-12] MEDS ORDERED: AZITHROMYCIN 500MG/250ML 250 ML IV SCH (15:00)
[2024-05-12] MEDS: CEFTRIAXONE 1GM/50ML 50 ML IV ONE (15:31)
[2024-05-12] MEDS ORDERED: IPRATROPIUM/ALBUTEROL 0.5-3(2.5)MG/3ML NEB HHN PRN ×2 (15:45)
[2024-05-12] MEDS ORDERED: ACETAMINOPHEN 325MG TABLET PO PRN ×2 (15:45)
[2024-05-12] MEDS ORDERED: LOSA25TA26 PO (16:00)
[2024-05-12] MEDS ORDERED: PROMETHAZINE/DEXTROMETHORPHAN 6.25-15MG/5ML PO PRN (16:15)
[2024-05-12 16:19] LABS: TROPONIN I HIGH SENSITIVITY 5 ng/L (3.0-53)
[2024-05-12] MEDS ORDERED: DEXTROSE 50% WATER 50ML SYRINGE IV PRN (16:30)
[2024-05-12] MEDS: LOSARTAN 50 MG TABLET PO SCH (16:33)
[2024-05-12] MEDS: AZITHROMYCIN 500MG/250ML 250 ML IV SCH (16:33)
[2024-05-12] MEDS: BLOOD SUGAR DIAGNOSTIC STRIP TEST SCH (16:55)
[2024-05-12 18:12] VITALS: BP 144/82; PULSE 91; RESP 20; TEMP 36.72516; O2SAT 94
[2024-05-12 18:15] VITALS: BP 144/82; RESP 18; TEMP 36.72516; O2SAT 94
[2024-05-12 19:30] VITALS: BP 144/82; PULSE 91; RESP 20; TEMP 36.7516
[2024-05-12 20:00] VITALS: BP 100/67; PULSE 78; RESP 18; RESP 20; TEMP 36.16956; O2SAT 96; O2SAT 98
[2024-05-12] MEDS: FAMOTIDINE 20MG TABLET PO SCH (21:32)
[2024-05-12] MEDS: GUAIFENESIN 600MG ER TABLET PO SCH (21:32)
[2024-05-12] MEDS: METHYLPREDNISOLONE SOD SUCC 40MG/ML (ACT-O-VIAL) IV SCH (21:33)
[2024-05-12] MEDS ORDERED: P20 MT (22:17)
[2024-05-12 23:12] VITALS: PULSE 86; RESP 20; O2SAT 86; O2SAT 96
[2024-05-12] MEDS: IPRATROPIUM/ALBUTEROL 0.5-3(2.5)MG/3ML NEB HHN SCH (23:12)
[2024-05-12 23:25] LABS: *AMPHETAMINES SCREEN URINE NEGATIVE (NEGATIVE); *BARBITURATES SCREEN URINE NEGATIVE (NEGATIVE); *BENZODIAZEPINES SCREEN URINE NEGATIVE (NEGATIVE); *COCAINE SCREEN URINE PRESUMPTIVE POSITIVE (NEGATIVE); METHADONE URINE SCREEN NEGATIVE (NEGATIVE); OPIATES URINE SCREEN NEGATIVE (NEGATIVE)
[2024-05-12 23:26] LABS: CANNABINOID URINE SCREEN NEGATIVE (NEGATIVE); ECSTASY MDMA SCREEN URINE NEGATIVE (NEGATIVE); PHENCYCLIDINE URINE SCREEN NEGATIVE (NEGATIVE)
[2024-05-13] VITALS (13 sets, daily range): BP systolic 101–133; BP diastolic 49–75; PULSE 81–99; RESP 17–20; TEMP 36.114–36.61404; O2SAT 95–100
[2024-05-13 06:15] LABS: CHLORIDE 106 mEq/L (98-107); POTASSIUM 4.7 mEq/L (3.5-5.1); SODIUM 140 mEq/L (136-145)
[2024-05-13 06:16] LABS: CALCIUM 9.2 mg/dL (8.7-10.4); CARBON DIOXIDE 24 mEq/L (21-32)
[2024-05-13 06:21] LABS: CREATININE 1.4 mg/dL (0.6-1.3); GLUCOSE 226 mg/dL (70-105); UREA NITROGEN BLOOD 16 mg/dL (9-23)
[2024-05-13 06:22] LABS: BASOPHILS % 0.2 % (0.0-2.0); DIFFERENTIAL COMMENT 0; HEMATOCRIT. 46.5 % (42.0-52.0); HEMOGLOBIN. 14.5 g/dL (14.0-18.0); LYMPHOCYTES % 14.5 % (20.0-50.0); MEAN CORPUSCULAR HEMOGLOBIN 28.4 pg (28.0-32.0); MEAN CORPUSCULAR HGB CONC 31.2 g/dL (31.0-37.0); MEAN CORPUSCULAR VOLUME 91.1 fL (80.0-94.0); MEAN PLATELET VOLUME 9.3 fl (7.4-10.4); MONOCYTES % 4.1 % (2.0-8.0); NEUTROPHILS % 81.2 % (40.0-76.0); PLATELET 320 x1000/uL (130-400); RED CELL DISTRIBUTION WIDTH 14.5 % (11.6-14.6); WHITE BLOOD COUNT 6.5 x1000/uL (4.5-11.0)
[2024-05-13] MEDS: AZITHROMYCIN 500MG/250ML 250 ML IV SCH (17:23)
[2024-05-14] VITALS (9 sets, daily range): BP systolic 111–149; BP diastolic 61–79; PULSE 76–94; RESP 18–20; TEMP 36.00288–37.11408; O2SAT 93–98
== END 2024-05-14 16:00 | disposition home or self-care (01) | DRG 189 ==
LOC: ER 13:39 → 5WST 14:59 → 7WST 17:51
PROVIDERS: ADMIT Internal Medicine; ATTEND Internal Medicine
PROC: 5A09357 Assistance with Respiratory Ventilation, Less than 24 Consecutive Hours, Continuous Positive Airway Pressure (ICD-10-PCS; principal; 2024-05-13)
DX: J96.01 Acute respiratory failure with hypoxia (principal); J44.1 Chronic obstructive pulmonary disease with (acute) exacerbation; Z20.822 Contact with and (suspected) exposure to COVID-19; I11.0 Hypertensive heart disease with heart failure; J96.02 Acute respiratory failure with hypercapnia; F14.10 Cocaine abuse, uncomplicated; F17.210 Nicotine dependence, cigarettes, uncomplicated; I50.9 Heart failure, unspecified; Z79.899 Other long term (current) drug therapy; Z82.5 Family history of asthma and other chronic lower respiratory diseases
CPT/HCPCS: 36415; 71045; 80048; 80305; 82962; 83036; 83880; 84439; 84481; 84484; 85025; 87420; 87426; 87804; 93005; 94640; 99285; J0456; J0696; J2919; J2920